=== PATIENT | male | born 1975 | race Caucasian/White ===

== ENCOUNTER 2023-09-26 09:54 | Inpatient (IN) | payer OTHER ==
[2023-09-26 10:34] VITALS: BMI 24.2
[2023-09-26] MEDS ORDERED: NALOXONE HCL 0.4 MG/ML VIAL IM PRN (11:38)
[2023-09-26] MEDS ORDERED: BENZONATATE 200 MG CAPSULE PO PRN (11:38)
[2023-09-26] MEDS ORDERED: DICYCLOMINE HCL 10 MG CAPSULE PO PRN (11:38)
[2023-09-26] MEDS ORDERED: POLYETHYLENE GLYCOL (HEALTHYLAX) 3350 17 GM PACKET PO PRN (11:38)
[2023-09-26] MEDS ORDERED: BISMUTH SUBSALICYLATE 262 MG/15 ML BTL PO PRN (11:38)
[2023-09-26] MEDS ORDERED: guaiFENesin 600 MG TABLET.ER (FP) PO PRN (11:38)
[2023-09-26] MEDS ORDERED: MAGNESIUM HYDROX 2400MG/30ML ORAL SUSPENSION 30 ML CUP PO PRN (11:38)
[2023-09-26] MEDS ORDERED: MAG HYDROX/AL HYDROX/SIMETH 30 ML UNIT-DOSE CUP PO PRN (11:38)
[2023-09-26] MEDS ORDERED: NALOXONE HCL (KLOXXADO) 8 MG SPRAY NS PRN (11:38)
[2023-09-26] MEDS ORDERED: LOPERAMIDE HCL 2 MG CAPSULE PO PRN (11:38)
[2023-09-26] MEDS ORDERED: BENZOCAINE/MENTHOL (CHLORASEPTIC ) LOZENGE MM PRN (11:38)
[2023-09-26] MEDS ORDERED: ONDANSETRON *ODT* 4 MG TABLET SL PRN (11:38)
[2023-09-26] MEDS ORDERED: IBUPROFEN 400 MG TABLET (FP) PO PRN (11:38)
[2023-09-26] MEDS ORDERED: METHOCARBAMOL 500 MG TABLET ONE (12:04)
[2023-09-26] MEDS: METHOCARBAMOL 500 MG TABLET PO PRN (12:13)
[2023-09-26] MEDS: methaDONE HCL 10 MG TABLET (FOR DETOX USE ONLY) PO ONE (13:17)
[2023-09-26 16:21] LABS: HIV INTERPRETATION NEGATIVE (NEGATIVE)
[2023-09-26] MEDS: hydrOXYzine PAMOATE 25 MG CAPSULE (FP) PO PRN (17:25)
[2023-09-26] MEDS: THIAMINE HCL 100 MG TABLET (FP) PO SCH (22:14)
[2023-09-26] MEDS: MELATONIN 5 MG TABLETS PO SCH (22:14)
[2023-09-26] MEDS: cloNIDine HCL 0.1 MG TABLET PO PRN (23:24)
[2023-09-26] MEDS: IBUPROFEN 600 MG TABLET (FP) PO PRN (23:24)
[2023-09-27 08:51] LABS: POTASSIUM 4.6 mmol/L (3.5-5.1)
[2023-09-27 08:53] LABS: CALCIUM 10.2 mg/dL (8.5-10.1)
[2023-09-27 08:54] LABS: ALBUMIN 4.2 g/dl (3.4-5.0); BLOOD UREA NITROGEN 11.9 mg/dL (7-18); HEMATOCRIT 42.9 % (35.4-49); HEMOGLOBIN 13.9 GM/dL (11.7-16.9); MCH 25.5 pg (25.7-33.7); MCHC 32.3 g/dl (32.0-35.9); MEAN PLT VOLUME 8.9 fl (7.5-11.1); PLATELET COUNT 360 10^3/uL (134-434); RBC 5.43 M/mm3 (4.00-5.60); RDW 15.1 % (11.9-15.9); WHITE BLOOD COUNT 6.8 K/mm3 (4.0-10.0)
[2023-09-27 08:57] LABS: CREATININE 0.8 mg/dL (0.55-1.3)
[2023-09-27 08:58] LABS: BILIRUBIN,TOTAL 0.5 mg/dL (0.2-1); TOT PROT 8.1 g/dl (6.4-8.2)
[2023-09-27] MEDS: PRENATAL VITAMINS W/ FOLIC ACID TABLET (FP) PO SCH (09:43)
[2023-09-27] MEDS: PNEUMOC 20-VAL CONJ-DIP CRM/PF 0.5 ML SYRINGE IM ONE (11:14)
[2023-09-28] MEDS: methaDONE HCL 10 MG TABLET (FOR DETOX USE ONLY) PO ONE (09:09)
[2023-09-28] MEDS: SUVOREXANT 10 MG TABLET PO PRN (22:02)
[2023-09-29] MEDS: ACETAMINOPHEN 325 MG TABLET (FP) PO PRN (07:36)
[2023-09-29 09:29] VITALS: BP 136/60; PULSE 95; RESP 16; TEMP 97.1
[2023-09-30] MEDS ORDERED: methaDONE HCL 10 MG TABLET (FOR DETOX USE ONLY) PO ONE (10:00)
== END 2023-09-29 09:45 | disposition left against medical advice (07) | DRG 770 ==
LOC: YASAS 09:54 → Y6N 12:17
PROVIDERS: ADMIT Allergy & Immunology; ATTEND Surgery
PROC: HZ2ZZZZ Detoxification Services for Substance Abuse Treatment (ICD-10-PCS; principal; 2023-09-26)
DX: F11.23 Opioid dependence with withdrawal (principal); F14.20 Cocaine dependence, uncomplicated; F19.282 Other psychoactive substance dependence with psychoactive substance-induced sleep disorder; F19.24 Other psychoactive substance dependence with psychoactive substance-induced mood disorder; M54.50 Low back pain, unspecified; G89.29 Other chronic pain; Z87.891 Personal history of nicotine dependence
CPT/HCPCS: 36415; 80053; 80307; 82310; 85027; 86780; 87389; 93005; 93010